=== PATIENT | female | born 1945 | race Caucasian/White ===

== ENCOUNTER → 2024-11-23 10:41 | Outpatient (BNVA) | payer MEDICARE, SELFPAY | PROVIDERS: PCP Nurse Practitioner Family; Referring Provider Nurse Practitioner Family; Visit Provider Internal Medicine Cardiovascular Disease | DX: I48.0 Paroxysmal atrial fibrillation (principal); I10 Essential (primary) hypertension | CPT/HCPCS: 93005; 99203 ==

== ENCOUNTER 2025-03-18 14:55 | Outpatient (REF) | payer MEDICARE, SELFPAY ==
--- NOTE | 2025-03-18 11:15 | SKI_PTH ---
PATIENT: Anna Bradshaw LOC: [facility] U#:[id number] AGE/SX: 80/F ROOM: RE03/18/[address]: ROBERT Anderson : 1945 BED: DIS: 03/18/2025 SPEC #: [id number] RECD: 03/18/25 15:22 STATUS: RUSS RELety #: [id number] BRANDON: 03/18/25 11:[address]: Octaviano Cabrera DEPT: Surgical Specimen RECD BY: Gwen Cai ENTERED: 03/18/25 15:22 SP TYPE: ROXANNA WALLIS DR: Gena Rubio Tissues: 1 - SKIN BIOPSY(SHAVE/PUNCH) 2 - SKIN BIOPSY(SHAVE/PUNCH) Procedures: SKIN LEVEL 4 Comments: [id number]
== END 2025-03-18 14:56 | disposition home or self-care (01) ==
LOC: LBN 14:55
PROVIDERS: PCP Nurse Practitioner Family; Referring Provider Nurse Practitioner Family; Visit Provider Physician Assistant
DX: D22.5 Melanocytic nevi of trunk (principal)
CPT/HCPCS: 88305

== ENCOUNTER → 2025-05-24 10:46 | Outpatient (BNVA) | payer MEDICARE, SELFPAY | PROVIDERS: PCP Nurse Practitioner Family; Referring Provider Nurse Practitioner Family; Visit Provider Internal Medicine Cardiovascular Disease | DX: I48.0 Paroxysmal atrial fibrillation (principal); I10 Essential (primary) hypertension; Z79.01 Long term (current) use of anticoagulants | CPT/HCPCS: 99213 ==